=== PATIENT | female | born 1995 | race African-American/Black ===

== ENCOUNTER 2018-05-10 23:08 | Emergency (ER) | payer OTHER ==
[~2018-05-10] VITALS: Ht 157.5 cm; Wt 77.1 kg
[2018-05-10 23:19] VITALS: BP 117/80
[2018-05-10 23:23] VITALS: BP 117/80
[2018-05-11 00:23] LABS: APPEARANCE,URINE CLOUDY (CLEAR); BILIRUBIN,URINE NEGATIVE (NEGATIVE); BLOOD, URINE 3+ (NEGATIVE); COLOR,URINE YELLOW (YELLOW); LEUKOCYTE ESTERASE ,URINE 2+ (NEGATIVE); NITRITE, URINE NEGATIVE (NEGATIVE); PH,URINE 5.5 (5.0-9.0); UGLUCOSE NEGATIVE (NEGATIVE)
[2018-05-11 00:45] LABS: RBC,URINE 11-20 (MOD) /HPF (0-5); WBC,URINE 16-25 (MOD) /HPF (0-5)
== END 2018-05-11 00:33 | disposition left against medical advice (07) ==
LOC: MED 23:08
DX: R10.30 Lower abdominal pain, unspecified (principal); H53.8 Other visual disturbances; R51 Headache; Z53.21 Procedure and treatment not carried out due to patient leaving prior to being seen by health care provider
CPT/HCPCS: 81001; 87086; 99281

== ENCOUNTER 2018-05-22 10:04 | Emergency (ER) | payer OTHER ==
[~2018-05-22] VITALS: Ht 152.4 cm; Wt 77.1 kg
[2018-05-22 10:08] VITALS: BP 133/96
--- NOTE | 2018-05-22 10:12 | NUR ---
PATIENT AMBULATED TO BED 3 AT THIS TIME.
--- NOTE | 2018-05-22 10:15 | NUR ---
22F BIB SELF WITH C/O CIRCULAR, RAISED, PRURITIC RASH TO BL LEGS, TORSO, BACK, AND BUTTOCK X 3 DAYS, PROGRESSIVELY GETTING WORSE. PT DENIES ANY FEVERS OR N/V. PT IS AOX4. RR ARE EVEN AND UNLABORED. PATIENT CHANGED INTO GOWN. AWAITING ER MD SHETTY. ALL NEEDS MET AT THIS TIME. WILL CONTINUE TO MONITOR.
--- NOTE | 2018-05-22 10:26 | NUR ---
ER MD JUAREZ BY BEDSIDE EXAMINING PATIENT
[2018-05-22 12:05] VITALS: BP 121/86
--- NOTE | 2018-05-22 12:05 | NUR ---
Patient discharged with v/s stable. Written and verbal after care instructions given and explained. Patient alert, oriented and verbalized understanding of instructions. Ambulatory with steady gait. All questions addressed prior to discharge. ID band removed. Patient advised to follow up with PMD. Rx of Doxycyline, [facility] Hydrocortisone 1%, and Benadryl given. Patient educated on indication of medication including possible reaction and side effects. Opportunity to ask questions provided and answered.
== END 2018-05-22 12:05 | disposition home or self-care (01) ==
LOC: MED 10:04
DX: L73.9 Follicular disorder, unspecified (principal)
CPT/HCPCS: 99283

== ENCOUNTER 2018-05-26 21:22 | Emergency (ER) | payer OTHER ==
[~2018-05-26] VITALS: Ht 152.4 cm; Wt 77.1 kg
[2018-05-26 21:33] VITALS: BP 130/76
--- NOTE | 2018-05-26 21:36 | NUR ---
TO BED # 1 AMBULATORY, REPORT GIVEN TO SUSAN TODD.
--- NOTE | 2018-05-26 21:50 | NUR ---
22/F CAME IN ED, C/O RASHES THROUGHOUT BODY. MUTLIPLE MINIMAL RASHES WITH SLIGHT REDNESS NOTED THROUGHOUT BODY, INCLUDING BUE, CHEST, BACK, BUTTOCKS AND BLE. PT REPORTS SLIGHT ITCHINESS. PT WAS SEEN 4 DAYS AGO, RX BENADRYL, HYDROCORTISONE CREAM, DOXYCYCLINE WITH SOME RELIEF, PT REPORTS NEW RASHES NOTED. PT REPORTS "PEOPLE HAVE BEEN TELLING ME ITS RINGWORM," PT REPORTS STARTING TO TAKE LOTRIMIN. PT DENIES N/V/D; SKIN IS INTACT, PINK/WARM/DRY; AAOX4, PERRL, WITH EVEN AND STEADY GAIT; LUNGS CLEAR BL, BREATHING UNLABORED; HR EVEN AND REGULAR, BL PERIPHERAL PULSES PRESENT; BS ACTIVE X4, NO TENDERNESS TO PALPATION; PT DENIES ANY FEVER, CP, SOB, OR COUGH AT THIS TIME; PT STATES 0/10 PAIN AT THIS TIME; VSS; PATIENT POSITIONED FOR COMFORT; HOB ELEVATED; BEDRAILS UP X2; BED DOWN.
--- NOTE | 2018-05-26 23:00 | NUR ---
DR SALGADO EVALUATING PT
--- NOTE | 2018-05-26 23:36 | NUR ---
PT RESTING IN BED, RR EVEN AND UNLABORED. ALL NEEDS MET AT THIS TIME.
[2018-05-27 00:36] VITALS: BP 123/78
--- NOTE | 2018-05-27 00:37 | NUR ---
Patient discharged with v/s stable. Written and verbal after care instructions given and explained. Patient alert, oriented and verbalized understanding of instructions. Ambulatory with steady gait. All questions addressed prior to discharge. ID band removed. Patient advised to follow up with PMD. Rx of LAMISIL PO, LAMISIL TOPICAL GEL, BENADRYL given. Patient educated on indication of medication including possible reaction and side effects. Opportunity to ask questions provided and answered.
== END 2018-05-27 00:37 | disposition home or self-care (01) ==
LOC: MED 21:22
DX: B36.0 Pityriasis versicolor (principal)
CPT/HCPCS: 99283